=== PATIENT | male | born 1960 | race Caucasian/White ===

== ENCOUNTER → 2019-08-06 | Outpatient (CLI) | payer OTHER ==
--- NOTE | 2019-08-07 17:36 | SLEEPCENT ---
DATE OF PROCEDURE: 08/06/2019 ORDERED BY: SARA Ayala Nocturnal polysomnography was performed for evaluation of sleep physiology in this patient with a history of excessive somnolence and nonrestorative sleep who has comorbidities of hypertension and diabetes. 6 hours and 33 minutes of data were reviewed. There were 335.5 minutes of sleep identified. Sleep latency was normal at 12.5 minutes. Rapid eye movement (REM) latency was somewhat delayed at 162.5 minutes. Sleep architecture showed fragmentation. There were three REM cycles noted. Overall sleep efficiency 86.4%. The patient's electrocardiogram showed a sinus rhythm with an average heart rate of 68 beats per minute. EEG showed normal waveforms for awake and sleep. There were 93 respiratory events identified of 10 seconds in duration or greater for an apnea-hypopnea index of 16.6. The events were primarily obstructive, not exclusive to sleep stage nor body posture. Arousals from respiratory events occurred eight times per hour and oxygen desaturations were seen into the 80s. There was limb activity but limb movement arousal index was only 4.5. IMPRESSION: Obstructive sleep apnea syndrome (G47.33). Apnea-hypopnea index 16.6. RECOMMENDATIONS: The patient should be encouraged to return to the sleep disorder center for pressure therapy. In the interim, alcohol and sedative avoidance should be practiced and caution exercised during the operation of motor vehicles.
== END ==
LOC: M SLEEP 19:44
PROVIDERS: ATTEND Nurse Practitioner Family
DX: G47.33 Obstructive sleep apnea (adult) (pediatric) (principal)

== ENCOUNTER → 2019-08-28 | Outpatient (CLI) | payer OTHER ==
--- NOTE | 2019-08-31 08:42 | SLEEPCENT ---
DATE OF PROCEDURE: 08/28/2019 REFERRING PROVIDER: EDUARDO Ayala, copy to Dr. Pavon. INTERPRETATION: Nocturnal polysomnography was performed for the titration of pressure therapy in this patient with obstructive sleep apnea syndrome. Apnea-hypopnea index 16.6. For testing a ResMed AirFit F30 full face mask of standard size was used,4 cm of water pressure were applied to the circuit and the lights were extinguished. 7 hours and 34 minutes of data were reviewed. There were 389 minutes of sleep identified. Sleep latency was prolonged at 29 minutes. REM latency was prolonged at 104 minutes. Sleep architecture improved later in the study on optimal pressure therapy. Overall sleep efficiency was 86.7% and there were three REM cycles seen. The patient's electrocardiogram showed sinus rhythm with an average heart rate of 58 beats per minute. EEG showed normal waveforms for awake and sleep stages. Respiratory events were optimally palliated with CPAP at a pressure of +10. Some limb activity was appreciated. Limb movement arousal index was 4.6. IMPRESSION: Obstructive sleep apnea syndrome (G47.33) RECOMMENDATIONS: Nightly use of pressure therapy 10 cm of water.
== END ==
LOC: M SLEEP 19:31
PROVIDERS: ATTEND Nurse Practitioner Family
DX: G47.33 Obstructive sleep apnea (adult) (pediatric) (principal)

== ENCOUNTER → 2019-09-15 | Outpatient (CLI) | payer OTHER | LOC: M LRY 16:40 | PROVIDERS: ATTEND Physician Assistant | DX: Z79.899 Other long term (current) drug therapy (principal) ==

== ENCOUNTER 2021-04-08 06:46 | Day surgery (SDC) | payer OTHER ==
[~2021-04-08] VITALS: Ht 172.7 cm; Wt 79.7 kg
[~2021-04-08 06:46] MED LIST: ATOR40TA75 PO; ECOT81TA5 PO; LISI20TA33 PO; MULT-40 PO; NS 1,000 ML IV ONE; OMEP40CA4 PO
[2021-04-08] MEDS ORDERED: propofoL 200 MG/20 ML VIAL As Ordered ONE (07:00)
[2021-04-08] MEDS ORDERED: LIDOCAINE 2% 100MG/5ML SDV (FOR ANES.) As Ordered ONE (07:00)
--- NOTE | 2021-04-08 08:15 | ROOR ---
Patient Name: Catracho Rowe Procedure Date: 04/08/2021 7:31 AM Date of : 1960 Age: 60 Room: [facility] Gender: Male Note Status: Finalized Procedure: Upper GI endoscopy Indications: Heartburn, Suspected esophageal reflux Providers: Darion Potter MD Referring MD: Cem Sanchez DO Requesting Provider: Medicines: Monitored Anesthesia Care Complications: No immediate complications. Procedure: Pre-Anesthesia Assessment: - Prior to the procedure, a History and Physical was performed, and patient medications and allergies were reviewed. The patient is competent. The risks and benefits of the procedure and the sedation options and risks were discussed with the patient. All questions were answered and informed consent was obtained. Patient identification and proposed procedure were verified by the physician, the nurse and the anesthesiologist in the endoscopy suite. Mental Status Examination: alert and oriented. Airway Examination: normal oropharyngeal airway and neck mobility. Respiratory Examination: clear to auscultation. CV Examination: normal. Prophylactic Antibiotics: The patient does not require prophylactic antibiotics. Prior Anticoagulants: The patient has taken no previous anticoagulant or antiplatelet agents. ASA Grade Assessment: III - A patient with severe systemic disease. After reviewing the risks and benefits, the patient was deemed in satisfactory condition to undergo the procedure. The anesthesia plan was to use monitored anesthesia care (MAC). Immediately prior to administration of medications, the patient was re-assessed for adequacy to receive sedatives. The heart rate, respiratory rate, oxygen saturations, blood pressure, adequacy of pulmonary ventilation, and response to care were monitored throughout the procedure. The physical status of the patient was re-assessed after the procedure. The Endoscope was introduced through the mouth, and advanced to the third part of duodenum. The upper GI endoscopy was accomplished without difficulty. The patient tolerated the procedure well. Findings: There is no endoscopic evidence of bleeding, areas of erosion, esophagitis or inflammation in the entire esophagus. The Z-line was regular and was found 38 cm from the incisors. This was biopsied with a cold forceps for histology. Estimated blood loss was minimal. A small hiatal hernia was present. Striped mildly erythematous mucosa without bleeding was found in the gastric antrum. Biopsies were taken with a cold forceps for Helicobacter pylori testing. The first portion of the duodenum and second portion of the duodenum were normal. Impression: - Z-line regular, 38 cm from the incisors. Biopsied. - Small hiatal hernia. - Erythematous mucosa in the antrum. Biopsied. - Normal first portion of the duodenum and second portion of the duodenum. Recommendation: - Await pathology results. - Use Prilosec (omeprazole) 40 mg PO daily indefinitely. Procedure Code(s): --- Professional --- 05060, Esophagogastroduodenoscopy, flexible, transoral; with biopsy, single or multiple Diagnosis Code(s): --- Professional --- K44.9, Diaphragmatic hernia without obstruction or gangrene K31.89, Other diseases of stomach and duodenum R12, Heartburn CPT copyright 2019 [employer]. All rights reserved. The codes documented in this report are preliminary and upon union steward review may be revised to meet current compliance requirements. Darion Potter MD Darion Potter MD 04/08/2021 8:15:01 AM Electronically signed by Darion Potter MD Number of Addenda: 0 Note Initiated On: 04/08/2021 7:31 AM Estimated Blood Loss: Estimated blood loss was minimal.
--- NOTE | 2021-04-08 08:19 | ROOR ---
Patient Name: Catracho Rowe Procedure Date: 04/08/2021 7:32 AM Date of : 1960 Age: 60 Room: [facility] Gender: Male Note Status: Finalized Procedure: Colonoscopy Indications: Screening for colorectal malignant neoplasm Providers: Darion Potter MD Referring MD: Cem Sanchez DO Requesting Provider: Medicines: Monitored Anesthesia Care Complications: No immediate complications. Procedure: Pre-Anesthesia Assessment: - Prior to the procedure, a History and Physical was performed, and patient medications and allergies were reviewed. The patient is competent. The risks and benefits of the procedure and the sedation options and risks were discussed with the patient. All questions were answered and informed consent was obtained. Patient identification and proposed procedure were verified [Verifying Personnel] [Verification]. [Mental Status Exam]. [Airway Exam]. [Respiratory Exam]. [CV Exam]. The patient [Abx Prophylaxis Requirement] prophylactic antibiotics [High Risk History Reason] and [High Risk Procedure Reason]. [Anticoagulant Agents] [Days Prior to Procedure]. [ASA Grade]. After reviewing the risks and benefits, the patient was deemed in satisfactory condition to undergo the procedure. [Anesthesia Plan]. Immediately prior to administration of medications, the patient was re-assessed for adequacy to receive sedatives. The heart rate, respiratory rate, oxygen saturations, blood pressure, adequacy of pulmonary ventilation, and response to care were monitored throughout the procedure. The physical status of the patient was re-assessed after the procedure. The Colonoscope was introduced through the anus and advanced to the cecum, identified by appendiceal orifice and ileocecal valve. The colonoscopy was performed without difficulty. The patient tolerated the procedure well. The quality of the bowel preparation was excellent. Findings: Hemorrhoids were found on perianal exam. A few small-mouthed diverticula were found in the ascending colon. The entire examined colon appeared normal on direct and retroflexion views. Impression: - Hemorrhoids found on perianal exam. - Diverticulosis in the ascending colon. - The entire examined colon is normal on direct and retroflexion views. - No specimens collected. Recommendation: - Discharge patient to home (ambulatory). - Repeat colonoscopy in 10 years for screening purposes. Procedure Code(s): --- Professional --- 57917, Colonoscopy, flexible; diagnostic, including collection of specimen(s) by brushing or washing, when performed (separate procedure) Diagnosis Code(s): --- Professional --- Z12.11, Encounter for screening for malignant neoplasm of colon K64.9, Unspecified hemorrhoids K57.30, Diverticulosis of large intestine without perforation or abscess without bleeding CPT copyright 2019 [employer]. All rights reserved. The codes documented in this report are preliminary and upon director of planning review may be revised to meet current compliance requirements. Darion Potter MD Darion Potter MD 04/08/2021 8:19:00 AM Electronically signed by Darion Potter MD Number of Addenda: 0 Note Initiated On: 04/08/2021 7:32 AM Estimated Blood Loss: Estimated blood loss: none.
[2021-04-08 08:37] VITALS: BP 141/95
== END 2021-04-08 08:38 | disposition home or self-care (01) ==
LOC: M OPP 06:46
PROVIDERS: ATTEND Surgery
DX: Z12.11 Encounter for screening for malignant neoplasm of colon (principal); K57.30 Diverticulosis of large intestine without perforation or abscess without bleeding; K64.8 Other hemorrhoids; K21.9 Gastro-esophageal reflux disease without esophagitis; K31.89 Other diseases of stomach and duodenum; K44.9 Diaphragmatic hernia without obstruction or gangrene; Z79.82 Long term (current) use of aspirin; Z79.84 Long term (current) use of oral hypoglycemic drugs; Z79.899 Other long term (current) drug therapy; Z88.0 Allergy status to penicillin; Z88.2 Allergy status to sulfonamides

== ENCOUNTER 2023-01-15 15:43 | Emergency (ER) | payer OTHER ==
[~2023-01-15] VITALS: Ht 172.7 cm; Wt 84.6 kg
[~2023-01-15 15:43] MED LIST changes: -NS 1,000 ML IV ONE
[2023-01-15] MEDS ORDERED: ACETAMINOPHEN TAB 650MG DOSE (2X325MG) PO ONE (16:15)
[2023-01-15] MEDS ORDERED: NS 1,000 ML IV ONE (16:20)
[2023-01-15 16:21] LABS: HEMATOCRIT 44.9 % (42.0-52.0); HEMOGLOBIN 15.3 g/dl (13.5-17.5); MEAN CORPUSCULAR HEMOGLOBIN 30.7 pg (27.0-33.0); MEAN CORPUSCULAR HGB CONC 34.1 g/dl (32.0-36.5); PLATELET COUNT, AUTOMATED 106 10^3/uL (150-450); RED BLOOD COUNT 4.99 10^6/uL (4.30-6.10); WHITE BLOOD COUNT 2.8 10^3/uL (4.0-10.0)
[2023-01-15 16:27] LABS: VENOUS BASE EXCESS -0.7 (-2.0-2.0); VENOUS HCO3 23.9 MMOL/L (23.0-27.0); VENOUS O2 SATURATION 82.5 % (60.0-80.0); VENOUS PARTIAL PRESSURE CO2 39.4 mmHg (38.0-50.0); VENOUS PARTIAL PRESSURE O2 44.6 mmHg (30.0-50.0); VENOUS STANDARD HCO3 23.5 MMOL/L; VENOUS TOTAL CO2 25.1 MMOL/L (24.0-28.0)
[2023-01-15 16:51] LABS: ATYPICAL LYMPH 16 % (0-5); LIPASE 78 U/L (12-53); LYMPHOCYTES 9 % (16-44); MONOCYTES 3 % (0-5); NEUTROPHILS 24 % (28-66); PLATELET ESTIMATE DECREASED (NORMAL)
[2023-01-15 16:54] LABS: ALBUMIN 3.9 G/DL (3.2-5.2); ALKALINE PHOSPHATASE 222 U/L (46-116); ALT/SGPT 128 U/L (7.0-40); AST/SGOT 145 U/L (<34); BILIRUBIN,DIRECT 0.5 MG/DL (<0.4); BILIRUBIN,TOTAL 1.3 MG/DL (0.3-1.2); BLOOD UREA NITROGEN 18 MG/DL (9-23); CALCIUM LEVEL 8.7 MG/DL (8.3-10.6); CARBON DIOXIDE LEVEL 24 MMOL/L (20-31); CHLORIDE LEVEL 100 MMOL/L (98-107); CPK CREATINE PHOSPHOKINASE 58 U/L (46-171); CREATININE FOR GFR 0.88 MG/DL (0.70-1.30); GLOMERULAR FILTRATION RATE > 60.0 (>49); GLUCOSE, FASTING 104 MG/DL (74-106); POTASSIUM SERUM 3.7 MMOL/L (3.5-5.1); SODIUM LEVEL 133 MMOL/L (136-145)
[2023-01-15 16:57] LABS: CK-MB VALUE MASS < 1.0 NG/ML (<3.6); MB/CK RELATIVE INDEX 1.72 (< OR =4)
[2023-01-15 16:59] LABS: FREE T4 1.11 NG/DL (0.89-1.76)
[2023-01-15 17:00] LABS: THYROID STIMULATING HORMONE 0.929 uIU/ML (0.55-4.78)
[2023-01-15] MEDS ORDERED: ISOVUE-370 76% 100ML VIAL As Ordered ONE (17:45)
[2023-01-15 17:56] LABS: CK-MB VALUE MASS < 1.0 NG/ML (<3.6)
[2023-01-15 17:58] LABS: CPK CREATINE PHOSPHOKINASE 53 U/L (46-171); MB/CK RELATIVE INDEX 1.88 (< OR =4)
[2023-01-15 19:03] VITALS: TEMP 100.1
[2023-01-15 19:30] VITALS: BP 141/79; O2SAT 96
[2023-01-15 20:00] LABS: HEPATITIS B SURFACE ANTIGEN NEGATIVE (NEGATIVE)
[2023-01-15] MEDS ORDERED: KETOROLAC 30 MG/ML 1ML VIAL IV ONE (20:00)
[2023-01-15 20:22] LABS: HEPATITIS B CORE ANTIBODY IGM NEGATIVE (NEGATIVE); HEPATITIS C VIRUS ABY INDEX 0.08 INDEX (<0.8)
== END 2023-01-15 19:40 | disposition home or self-care (01) ==
LOC: EDBD 15:43 → M ED 15:43
DX: R50.9 Fever, unspecified (principal); B34.9 Viral infection, unspecified; E11.9 Type 2 diabetes mellitus without complications; G47.33 Obstructive sleep apnea (adult) (pediatric); Z79.899 Other long term (current) drug therapy; Z88.0 Allergy status to penicillin; Z88.2 Allergy status to sulfonamides
CPT/HCPCS: 71045; 71275; 74177; 80048; 80076; 82550; 82553; 82803; 83605; 83690; 83880; 84439; 84443; 84484; 85025; 85379; 86140; 86618; 86705; 86709; 86803; 87040; 87340; 87486; 87581; 87633; 87798; 93005; 93041; 94760; 96360; 96361; 99285; Q9967